=== PATIENT | male | born 1940 | race Two or more races ===

== ENCOUNTER 2017-12-11 08:12 | Day surgery (SDC) | payer OTHER ==
[~2017-12-11 08:12] MED LIST: CARVEDILOL6.25 MG PO; HIGH POTENCY I134 MG PO; HYDRALAZINE HC100 MG PO; INTESTINEX680 MG PO; LISINOPRIL40 MG PO; NOVOLIN 70/30 110 ML SQ; OMEPRAZOLE20 MG PO; PERCOCET 5/3251 TAB PO; PRAVASTATIN SOD40 MG PO; PROTEGRA PO
== END 2017-12-11 13:03 | disposition home or self-care (01) ==
LOC: AMB-ENDOS 08:12
DX: D12.4 Benign neoplasm of descending colon (principal)